=== PATIENT | male | born 1965 | race Caucasian/White ===

== ENCOUNTER 2023-09-15 15:17 | Emergency (ER) | payer BC, SELFPAY ==
[2023-09-15] VITALS (7 sets, daily range): BP systolic 163–208; BP diastolic 91–112
[2023-09-15 16:51] LABS: % Basophils 0.9 % (0-2); % Eosinophils 2.5 % (0-6); % Immature Granulocytes 0.2 % (0-0.5); % Monocytes 10.8 % (1.7-9.3); % Neutrophils 56.6 % (42.2-75.2); Absolute Basophils 0.1 10^3/uL (0-0.2); Absolute Eosinophils 0.2 10^3/uL (0-0.7); Absolute Lymphocytes 2.6 10^3/uL (1.2-3.4); Absolute Neutrophils 5.2 10^3/uL (1.4-6.5); Hematocrit 42.2 % (39.0-52.0); Mean Corp Hgb Conc. 35.5 g/dL (33.0-37.0); Mean Corpuscular Hgb 30.6 pg (27.0-31.0); Mean Corpuscular Volume 86.1 fL (80.0-94.0); Mean Platelet Volume 10.4 fL (7.4-10.4); Nucleated Red Blood Cells % 0 % (-); Platelet Count 183 10^3/uL (130-400); Red Cell Dist. Width 12.3 % (11.5-14.5); White Blood Cell Count 9.1 10^3/uL (4.8-10.8)
--- NOTE | 2023-09-15 17:11 | ED.GENMED ---
History of Present Illness
General
Chief Complaint: Heart Rate Problem
Source: patient
Exam Limitations: none
Time Seen by Provider: 09/15/23 16:22
Nursing documentation reviewed up to this point in time: agreed with
History of Present Illness
History of Present Illness:
58-year-old male past medical history of hypertension and hypothyroidism presenting to the emergency department today with concerns of a reading on his watch to set A-fib while he was sleeping. He claims that he been somewhat fatigued and has felt
off over the past few days but denies any specific shortness of breath chest nausea vomiting. Did have some chest cramping a few days ago denies any currently.
Review of Systems
Review of Systems
Allergies reviewed?: Yes
All Other Systems: ROS reviewed and negative except as documented in HPI and ROS
Phy Exam
Physical Exam
Physical Exam:
GENERAL: Alert , in no apparent distress
EYE: pupils equal and reactive
NECK: Supple, no significant adenopathy.
ENT: o/p clr, mmm.
CARDIAC: Regular rate and rhythm .
LUNGS: Clear breath sounds bilaterally, no acute respiratory distress, no wheezes/rales/rhonchi
ABDOMEN: Soft, without focal tenderness, no r/g, no cvat
NEUROLOGICAL: Alert and oriented, no focal neuro deficits
SKIN: Warm and dry, skin intact.
MUSCULOSKELETAL: No edema, well perfused.
PSYCH: Normal and appropriate interaction.
Course
Orders/Labs/Results
Orders:
Orders
09/15/23 15:18
Electrocardiogram (*1) Urgent
Reason for Study: Tachycardia
EKG- Treatment ONCE
09/15/23 16:22
Cardiac Monitoring- Treatment ONCE
09/15/23 16:41
Chest [CR Chest - 2 Views ] Urgent
Comment:
Reason For Exam: cp
09/15/23 16:42
Complete Blood Count/With Diff Urgent
Comprehensive Metabolic Panel Urgent
Troponin I Urgent
Abnormal Lab Results
09/15/23
16:42
Absolute Monos (auto) 1.0 H 10^3/uL
(0.1-0.6)
Monocytes % 10.8 H %
(1.7-9.3)
BUN 26 H mg/dl
(9-20)
09/15/23 16:42
09/15/23 16:42
Vital Signs
Initial and Last Documented VS:
Initial Vital Signs
Temp Pulse Resp BP Pulse Ox
98.3 F 61 18 187/91 97
09/15/23 15:27 09/15/23 15:27 09/15/23 15:27 09/15/23 15:27 09/15/23 15:27
Last Documented Vital Signs
Temp Pulse Resp BP Pulse Ox
98.3 F 51 20 183/112 99
09/15/23 15:27 09/15/23 16:43 09/15/23 16:43 09/15/23 16:43 09/15/23 16:43
MDM/Problems Addressed
MDM/Problems Addressed:
58-year-old male presenting to the emergency department today with concerns of readings from his Fitbit that showed possible A-fib while sleeping over the past few nights. Denies additional symptoms otherwise. Upon arrival blood pressure elevated
otherwise vital signs are normal. Initial EKG nonischemic nonrhythmic labs are obtained and unremarkable. Normal physical examination. No evidence of A-fib on the monitor here. Patient was started on aspirin otherwise will follow-up closely with
cardiology no evidence of emergent pathology at this time further assessment will be needed for possible paroxysmal A-fib.
*Critical Care Note
Total Time (30-74mins, 75-104mins- exclusive of procedures): Not Applicable
ED Attending Note
-
Portions of this chart may have been created with voice recognition software.� Occasional wrong word or��sound alike� substitutions may have occurred due to the inherent limitations of voice recognition software.
Discharge Plan
Departure
Patient Disposition: Home (Routine Discharge)
Date of Disposition: 09/15/23
Time of Disposition: 17:45
Presentation/result/management discussed w/ accepting MD/DO: Hospitalist
Patient with high blood pressure during this ER visit?: No
Condition: Good
Covid-19: Not Applicable
Discharge Problem:
Abnormal heart rate
Instructions: Atrial Fibrillation (DC), Chest Pain DCA Follow Up
Prescriptions:
No Action
methylprednisolone [Medrol (Naman)] 4 mg tablets,dose pack
4 mg PO DAILY Qty: 21 0RF
cyclobenzaprine 10 mg tablet
10 mg PO TID Qty: 14 0RF
Referrals:
Jim Guerrero DO [Family Provider] -
Activity Restrictions/Additional Instructions:
You came to the emergency department today with concerns of a reading of atrial fibrillation on your watch. Here you had a reassuring assessment your blood pressure was initially elevated but did improve to the 160s over 100. Please keep an eye on
this at home over the next few days. He can take your blood pressure once daily after breakfast. Your labs were normal your troponin test was negative chest x-ray was normal and your EKG did not show any emergent rhythm. You will need to
follow-up closely with cardiology for further assessment. Return to the emergency department for any worsening, new or concerning symptoms.
Interventions
Interventions:
*Risk Screen - Suicide Last Done: 09/15/23 15:27
*General Assessment Last Done: 09/15/23 15:27
*Neglect/Abuse Screening Last Done: 09/15/23 15:27
ED- Cardiac Assessment Last Done: 09/15/23 16:30
ED- Pulmonary Assessment Last Done: 09/15/23 16:30
Discharge Date and Time
Print Language: [id number]
[2023-09-15 17:16] LABS: Troponin I < 0.012 ng/ml
[2023-09-15 17:25] LABS: ALT (SGPT) 23 U/L (0-50); AST (SGOT) 33 U/L (17-59); Albumin 4.8 g/dl (3.5-5.0); Alkaline Phosphatase 44 U/L (38-126); Blood Urea Nitrogen 26 mg/dl (9-20); Calcium 9.9 mg/dl (8.4-10.2); Carbon Dioxide 25 mmol/L (22-30); Chloride 104 mmol/L (98-107); Glucose 83 mg/dl (70-99); Potassium 3.7 mmol/L (3.5-5.1); Sodium 139 mmol/L (135-145); Total Bilirubin 0.6 mg/dl (0.2-1.3); Total Protein 7.7 g/dl (6.3-8.2); eGFR > 60.00
== END 2023-09-15 18:07 | disposition home or self-care (01) ==
LOC: EMR 15:17
PROVIDERS: Physician Assistant; EMERGENCY PHYSICIAN Emergency Medicine; FAMILY PHYSICIAN Family Medicine
DX: R00.9 Unspecified abnormalities of heart beat (principal); R53.83 Other fatigue; I10 Essential (primary) hypertension; E03.9 Hypothyroidism, unspecified; Z88.8 Allergy status to other drugs, medicaments and biological substances
CPT/HCPCS: 99283; 71046; 80053; 84484; 85025; 93005

== ENCOUNTER → 2023-10-05 07:11 | Outpatient (REF) | payer BC, SELFPAY | LOC: HWRCS 07:11 | PROVIDERS: ATTENDING PHYSICIAN Internal Medicine Cardiovascular Disease; FAMILY PHYSICIAN Family Medicine | DX: R00.0 Tachycardia, unspecified (principal) | CPT/HCPCS: 93306 ==